=== PATIENT | female | born 1955 | race Caucasian/White ===

== ENCOUNTER → 2018-08-15 | Outpatient (CLI) | payer OTHER ==
[2018-08-15 10:44] LABS: BASOPHIL % 0.3 % (0.0-0.2); EOSINOPHIL # 0.1 10^3/uL (0.0-0.2); EOSINOPHIL % 1.7 % (0.0-5.0); HEMOGLOBIN 14.1 g/dL (12.0-15.0); LYMPHOCYTES # 2.1 10^3/uL (1.0-4.8); LYMPHOCYTES % 33.3 % (24.0-44.0); MEAN CELL HGB 31.2 pg (26-34); MEAN CELL HGB CONCENTRATION 33.8 g/dL (33-37); MEAN CORP VOLUME 92.3 fL (78-100); MONOCYTES # 0.5 10^3/uL (0.3-0.8); MONOCYTES % 8.4 % (5.0-12.0); NEUTROPHIL # 3.6 10^3/uL (1.8-7.7); RED CELL DISTRIBUTION WIDTH 14.4 % (11.5-14.5); WHITE BLOOD CELL 6.4 10^3/uL (4.5-11.0)
[2018-08-15 10:47] LABS: BILIRUBIN,URINE NEGATIVE (NEGATIVE); UROBILINOGEN,URINE NORMAL (NEGATIVE)
[2018-08-15 10:49] LABS: APPEARANCE,URINE CLEAR (CLEAR); UA COLOR YELLOW (YELLOW)
[2018-08-15 11:26] LABS: CALCIUM 10.2 mg/dL (8.4-10.5); CARBON DIOXIDE 24.7 mmol/L (20.0-32)
== END | disposition home or self-care (01) ==
LOC: LAB 10:16
PROVIDERS: ATTEND Nurse Practitioner Family
DX: E03.9 Hypothyroidism, unspecified (principal); I10 Essential (primary) hypertension; E87.5 Hyperkalemia
CPT/HCPCS: 36415; 80053; 80061; 81002; 84439; 84443; 84480; 85025

== ENCOUNTER 2018-11-07 20:28 | Emergency (ER) | payer OTHER ==
[~2018-11-07] VITALS: Ht 170.2 cm; Wt 79.8 kg
[2018-11-07 20:28] VITALS: BP 117/74
[2018-11-07] MEDS ORDERED: TORADOL IM STA (20:52)
--- NOTE | 2018-11-07 20:58 | ER.PDOC ---
General Chief Complaint: Requesting Medical Care Stated Complaint: COUGH, R SIDE PAIN Time seen by MD: 20:43 Source: patient Exam Limitations: no limitations History of Present Illness Initial Comments 63 YO FEMALE WITH COUGH PRODUCTIVE OF YELLOW SPUTUM X 4 DAYS. THE SPUTUM IS NOW PINK AND FROTTY. ASSOCIATED NASAL CONGESTION, SORE THROAT, CHILLS. SHE STATED HAVING RIGHT CHEST PAIN ON COUGHING TODAY. SHE HAD MILD WHEEZING A DAY AGO BUT NON CURRENTLY. SHE HAS BEEN TAKING OTC COUGH MEDICINE WITH NO IMPROVEMENT. Timing/Duration: abrupt, other (4 DAYS AGO) Severity: moderate Associated Symptoms: fever/chills, runny nose, sore throat, cough, productive cough, hurts to breath Worsen By: deep breathing Prior symptoms/Treatment: Similar symptoms previous Constitutional: denies chills, denies diaphoresis, denies fever, denies malaise, denies weakness EENTM: no symptoms reported Respiratory: cough; denies SOB with exertion, denies wheezing Cardiovascular: chest pain; denies irregular heart rate, denies lightheadedness, denies palpitations Gastrointestinal: denies abdominal pain Genitourinary: denies burning Musculoskeletal: denies back pain Skin: denies rash Psychiatric/Neurological: denies headache Endocrine: denies excessive sweating Hematologic/Lymphatic: denies easy bruising Past Medical History Medical History: high cholesterol, hypertension, thyroid disease (HYPOTHYROIDISM), other (MIGRAINE) Surgical History: hysterectomy LMP (females 10-50): hysterectomy Family History Significant Family History: no pertinent family hx Social History Smoking: non-smoker Alcohol Use: occassionally Drug Use: none Physical Exam General Appearance: alert, other (RIGHT CHEST DISCOMFORT ON COUGHING) Eye: eyes nml inspection, lids & conjunct. nml, PERRL Ear: ear nml Nose: nose nml Throat: pharynx nml Neck: nml inspection, supple Respiratory: splinting, decreased air movement (RIGHT LUNG) Abdomen: non-tender, no organomegaly CVS: reg rate & rhythm Skin: color nml, no rash Extremities: non-tender, no pedal edema NEURO/PSYCH: oriented x 3, other (NO ALTERED MENTAL STATUS) Results/Orders Results/Orders Orders - EDINSON MEZA MD Xr Chest 2v (11/07/18 20:52) Ketorolac Tromethamine (Toradol) (11/07/18 20:52) Ketorolac Tromethamine (Toradol) (11/07/18 21:45) Cbc With Auto Diff (11/07/18 22:22) Comprehensive Metabolic Panel (11/07/18 22:22) Saline Lock (11/07/18 22:22) Levofloxacin (Levaquin) (11/07/18 23:17) Blood Culture (11/07/18 23:17) Saline Lock (11/07/18 23:17) Contact Isolation With Mask (11/07/18 23:20) Potassium Chloride (Klor-Con 10) (11/07/18 23:24) Levofloxacin (Levaquin) (11/07/18 23:34) Potassium Chloride (Klor-Con 10) (11/07/18 23:34) Potassium Chloride (Klor-Con 10) (11/07/18 23:40) Vital Signs Date Time Temp Pulse Resp B/P (MAP) Pulse Ox O2 Delivery O2 Flow Rate FiO2 11/08/18 00:09 99.0 90 20 96 Room Air 11/07/18 23:57 90 20 107/51 (69) 96 Room Air 11/07/18 20:28 99.0 93 22 117/74 (88) 97 Room Air 99.0 11/07/18 20:28 99.0 93 22 97 Room Air 99.0 11/07/18 20:28 99.0 93 18 99.0 Administered Medications Medications (Trade) Dose Ordered Sig/Sami Route PRN Reason Start Time Stop Time Status Last Admin Dose Admin Ketorolac Tromethamine (Toradol) 60 mg STAT STAT IM 11/07/18 20:52 11/07/18 20:55 DC 11/07/18 21:52 60 MG Levofloxacin (Levaquin) 750 mg STAT STAT PO 11/07/18 23:17 11/07/18 23:21 DC 11/07/18 23:45 750 MG Potassium Chloride (Klor-Con 10) 40 meq STAT STAT PO 11/07/18 23:24 11/08/18 00:10 DC 11/07/18 23:45 40 MEQ Laboratory Tests Test 11/07/18 22:40 11/07/18 22:48 White Blood Count 12.8 10^3/uL (4.5-11.0) H Red Blood Count 4.21 10^6/uL (4.00-5.20) Hemoglobin 12.8 g/dL (12.0-15.0) Hematocrit 37.4 % (36.0-46.0) Mean Corpuscular Volume 88.8 fL (78-100) Mean Corpuscular Hemoglobin 30.4 pg (26-34) Mean Corpuscular Hemoglobin Concent 34.2 g/dL (33-37) Red Cell Distribution Width 13.5 % (11.5-14.5) Platelet Count 205 10^3/uL (150-400) Mean Platelet Volume 9.2 fL (7.8-11.0) Neutrophils (%) (Auto) 87.7 % (41.0-85.0) H Lymphocytes (%) (Auto) 4.1 % (24.0-44.0) *L Monocytes (%) (Auto) 7.6 % (5.0-12.0) Neutrophils # (Auto) 11.3 10^3/uL (1.8-7.7) H Lymphocytes # (Auto) 0.5 10^3/uL (1.0-4.8) L Monocytes # (Auto) 1.0 10^3/uL (0.3-0.8) H Absolute Immature Granulocyte (auto 0.07 10^3 u/L (0-2) Immature Granulocytes % 0.50 % (0.00-0.50) Eosinophils % 0.0 % (0.0-5.0) Basophils % 0.1 % (0.0-0.2) Basophils # 0.0 10^3/uL (0.0-0.1) Eosinophil Count 0.0 10^3/uL (0.0-0.2) Sodium Level 138 mmol/L (132-145) Potassium Level 2.8 mmol/L (3.6-5.2) L Chloride Level 106.0 mmol/L (96-109) Carbon Dioxide Level 21.2 mmol/L (20.0-32) Anion Gap 13.6 Blood Urea Nitrogen 17 mg/dL (7-18) Creatinine 1.05 mg/dL (0.59-1.40) Estimated GFR () 64.3 (>/=60) BUN/Creatinine Ratio 16.0 Glucose Level 114 mg/dL (70-110) H Calcium Level 9.4 mg/dL (8.4-10.5) Total Bilirubin 0.4 mg/dL (0.2-1.0) Aspartate Amino Transferase (AST) 34 U/L (0-35) Alanine Aminotransferase (ALT) 41 U/L (12-78) Alkaline Phosphatase 63 U/L (50-136) Total Protein 7.0 g/dL (6.4-8.2) Albumin 3.3 g/dL (3.4-5.0) L Globulin 3.7 Differential Total Cells Counted 100 #CELLS Segmented Neutrophils 74 % (31-76) Band Neutrophils 12 % (2-6) H Lymphocytes 6 % (25-36) L Monocytes 8 % (3-9) Platelet Estimate ADEQUATE Platelet Morphology NORMAL Blood Morphology Comment NORMAL MORPHOLOGY Progress Progress CBC WITH WBC 12.8, NEUT 87.7, POTASSIUM 2.8. CHEST XR SHOW RIGHT MIDDLE LOBE PNEUMONIA. PATIENT IS AFEBRILE, NOT TOXIC LOOKING, WILL TREAT OUT PATIENT. CLOSE FOLLOW UP WITH HER PCP FOR RECHECK. PATIENT TO WEAR MASK. PATIENT IS NOT HYPOXIC. PNEUMONIA SEVERITY INDEX CLASS 2. SHE CAN BE TREATED OUT PATIENT. POTASSIUM REPLACEMENT ADMINISTERED PO PRIRO TO DISCHARGE. PATIENT IS STABLE. SHE WORKS AT THE HOSPITAL. I CANNOT COMPLETELY EXCLUDE NOSOCOMIAL INFECTION. I WILL PLACE HER ON LEVAQUIN FOR AT LEAST 7 DAYS. CLOSE FOLLOW UP. EKG/XRAY/CT/US XRAY: chest XRAY Comments: Right middle lobe pneumonia. Departure Time of Disposition: 23:27 Disposition: 01 HOME, SELF-CARE Impression: Primary Impression: Pneumonia Additional Impression: Hypokalemia Condition: Stable Patient Instructions: Hypokalemia-Brief, Pneumonia, Adult Referrals: KARLA SHARIF (PCP) PRIMARY CARE PROVIDER FOLLOW UP WITH YOUR PRIMARY CARE PROVIDER FOR RECHECK. Additional Instructions: DRINK PLENTY OF FLUID TO KEEP YOU HYDRATED. TAKE YOUR MEDICATIONS PRESCRIBED. RETURN TO THE ER IF YOUR CONDITION WORSEN. TAKE TYLENOL IF YOU DEVELOP FEVER. Comments LEVAQUIN, NAPROSYN, PROAIR Duration or Time Spent with Pa: 60 MIN Problem Qualifiers Primary Impression: Pneumonia Pneumonia type: due to unspecified organism Laterality: right Lung location: middle lobe of lung Qualified Codes: J18.1 - Lobar pneumonia, unspecified organism EDINSON MEZA MD Nov 07, 2018 20:58
--- NOTE | 2018-11-07 21:28 | DIREP ---
PROCEDURE:CHEST 2 VIEWS COMPARISON:None. INDICATIONS:COUGH FINDINGS: LUNGS/PLEURA:Right middle lobe airspace infiltrate. No pleural effusion. CARDIAC:Normal cardiac silhouette and normal pulmonary vascularity. MEDIASTINUM:Normal BONES:Normal OTHER:No additional findings. CONCLUSION:Right middle lobe pneumonia. Followup to resolution is recommended to exclude a proximal obstructing or underlying mass. Dictated by: Sammie Cortes MD on 11/07/2018 at 09:26 PM
[2018-11-07] MEDS ORDERED: TORADOL ONE (21:45)
[2018-11-07 22:45] LABS: BASOPHIL % 0.1 % (0.0-0.2); HEMOGLOBIN 12.8 g/dL (12.0-15.0); LYMPHOCYTES # 0.5 10^3/uL (1.0-4.8); LYMPHOCYTES % 4.1 % (24.0-44.0); MEAN CELL HGB 30.4 pg (26-34); MEAN CELL HGB CONCENTRATION 34.2 g/dL (33-37); MEAN CORP VOLUME 88.8 fL (78-100); MEAN PLATELET VOLUME 9.2 fL (7.8-11.0); MONOCYTES % 7.6 % (5.0-12.0); NEUTROPHIL # 11.3 10^3/uL (1.8-7.7); NEUTROPHILS % 87.7 % (41.0-85.0); RED CELL DISTRIBUTION WIDTH 13.5 % (11.5-14.5); WHITE BLOOD CELL 12.8 10^3/uL (4.5-11.0)
[2018-11-07 23:01] LABS: CARBON DIOXIDE 21.2 mmol/L (20.0-32)
[2018-11-07 23:02] LABS: CALCIUM 9.4 mg/dL (8.4-10.5)
[2018-11-07] MEDS ORDERED: LEVAQUIN PO STA (23:17)
[2018-11-07] MEDS ORDERED: KLOR-CON 10 PO STA (23:24)
[2018-11-07] MEDS ORDERED: KLOR-CON 10 PO ONE ×2 (23:34→23:40)
[2018-11-07] MEDS ORDERED: LEVAQUIN ONE (23:34)
[2018-11-07 23:54] LABS: BAND NEUTROPHILS 12 % (2-6); LYMPHOCYTE 6 % (25-36); MONOCYTE 8 % (3-9); SEGMENTED NEUTROPHILS 74 % (31-76)
[2018-11-07 23:57] VITALS: BP 107/51
[2018-11-08 00:09] VITALS: BP 107/51
== END 2018-11-07 23:57 | disposition home or self-care (01) ==
LOC: ER 20:28
DX: J18.1 Lobar pneumonia, unspecified organism (principal); E87.6 Hypokalemia; E03.9 Hypothyroidism, unspecified; G43.909 Migraine, unspecified, not intractable, without status migrainosus; E78.00 Pure hypercholesterolemia, unspecified; I10 Essential (primary) hypertension; Z79.899 Other long term (current) drug therapy; Z90.710 Acquired absence of both cervix and uterus
CPT/HCPCS: 36415; 71046; 80053; 85025; 87040 ×2; 96372; 99285; J1885; J1956; J3490 ×2

== ENCOUNTER → 2018-11-13 | Outpatient (CLI) | payer OTHER | END | disposition home or self-care (01) | LOC: LAB 11:46 | PROVIDERS: ATTEND Nurse Practitioner Family | DX: E03.9 Hypothyroidism, unspecified (principal) | CPT/HCPCS: 84443 ==

== ENCOUNTER → 2018-11-28 | Outpatient (CLI) | payer OTHER ==
[2018-11-28 15:27] LABS: CALCIUM 9.3 mg/dL (8.4-10.5); CARBON DIOXIDE 25.8 mmol/L (20.0-32)
== END | disposition home or self-care (01) ==
LOC: LAB 14:35
PROVIDERS: ATTEND Nurse Practitioner Family
DX: E87.6 Hypokalemia (principal)
CPT/HCPCS: 36415; 80053

== ENCOUNTER → 2018-12-25 | Outpatient (CLI) | payer OTHER ==
[2018-12-25 20:01] LABS: CALCIUM 9.3 mg/dL (8.4-10.5); CARBON DIOXIDE 25.5 mmol/L (20.0-32)
== END | disposition home or self-care (01) ==
LOC: LAB 19:03
PROVIDERS: ATTEND Nurse Practitioner Family
DX: E87.6 Hypokalemia (principal); I10 Essential (primary) hypertension; E03.9 Hypothyroidism, unspecified
CPT/HCPCS: 36415; 80053

== ENCOUNTER → 2019-02-18 | Outpatient (CLI) | payer OTHER ==
[2019-02-18 08:46] LABS: MEAN CELL HGB CONCENTRATION 32.9 g/dL (33-37); MEAN PLATELET VOLUME 9.3 fL (7.8-11.0); RED CELL DISTRIBUTION WIDTH 14.7 % (11.5-14.5); WHITE BLOOD CELL 5.7 10^3/uL (4.5-11.0)
[2019-02-18 09:12] LABS: CALCIUM 9.5 mg/dL (8.4-10.5); CARBON DIOXIDE 24.1 mmol/L (20.0-32)
== END | disposition home or self-care (01) ==
LOC: LAB 08:12
PROVIDERS: ATTEND Nurse Practitioner Family
DX: E03.9 Hypothyroidism, unspecified (principal); E78.5 Hyperlipidemia, unspecified
CPT/HCPCS: 36415; 80053; 80061; 84443; 85027

== ENCOUNTER → 2019-03-05 | Outpatient (CLI) | payer OTHER ==
--- NOTE | 2019-03-05 11:15 | DIREP ---
PROCEDURE:Digital Screening Mammogram TECHNIQUE:MLO, CC, and XCCL digital images of each breast are provided. Computer Assisted Detection (CAD) was utilized. COMPARISON:None. INDICATIONS:SCREENING BREAST COMPOSITION:There are scattered areas of fibroglandular density. FINDINGS:There are no grouped microcalcifications, masses, or architectural distortions to suggest malignancy. IMPRESSION:No mammographic evidence of malignancy. RECOMMENDATIONS:Routine Screening Mammography per [employer] guidelines. OVERALL FINAL ASSESSMENT:BI-RADS 1 - Negative Mammogram Note: This facility participates in a mammography screening patient reminder system. Dictated by: Lamin Gonzalez M.D. on 03/05/2019 at 11:11 AM
== END | disposition home or self-care (01) ==
LOC: RAD 09:37
PROVIDERS: ATTEND Nurse Practitioner Family
DX: Z12.31 Encounter for screening mammogram for malignant neoplasm of breast (principal)
CPT/HCPCS: 77067

== ENCOUNTER 2019-05-13 19:43 | Emergency (ER) | payer OTHER ==
[~2019-05-13] VITALS: Ht 170.2 cm; Wt 81.6 kg
[2019-05-13 20:04] VITALS: BP 138/64
[2019-05-13] MEDS ORDERED: MORPHINE SULFATE IM STA (20:22)
[2019-05-13] MEDS ORDERED: PHENERGAN IM STA (20:22)
[2019-05-13] MEDS ORDERED: PHENERGAN ONE (20:24)
--- NOTE | 2019-05-13 20:24 | ER.PDOC ---
General Chief Complaint: Headache Stated Complaint: MIRGRAINE Time seen by MD: 20:15 Source: patient Exam Limitations: no limitations History of Present Illness Initial Comments Acute onset of headache c/w migraine 2 hrs ago. Typical of previous but worse than usual Timing/Duration: 1-3 hours Severity/Quality: severe Prior Headaches/Recent Trauma: frequent headaches Associated Symptoms: nausea/vomiting Prior symptoms/Treatment: Similar symptoms previous, Recenly Seen, Treated by Doctor Past Medical History Medical History: hypertension, thyroid disease Surgical History: hysterectomy Social History Alcohol Use: occassionally Drug Use: none Review of Systems Constitutional: no symptoms reported Eyes: photophobia Ears, Nose, Mouth, Throat: no symptoms reported Respiratory: no symptoms reported Cardiovascular: no symptoms reported Gastrointestinal: nausea Genitourinary: no symptoms reported Musculoskeletal: no symptoms reported Skin: no symptoms reported Psychiatric/Neurological: no symptoms reported Physical Exam General Appearance: WD/WN, Moderate Distress Head/Eyes: eyes nml inspection, no facial swelling, no nystagmus, PERRL ENT: nml ENT inspection, pharynx nml Neck: nml inspection, Supple Cardiovascular: Normal Peripheral Pulses, Regular Rate, Rhythm, No Edema, No Gallop, No JVD, No Murmur Respiratory: chest non-tender, lungs clear, normal breath sounds, no respiratory distress, no accessory muscle use Gastrointestinal: Normal Bowel Sounds, No Organomegaly, No Pulsatile Mass, Non Tender, Soft Back: Normal Inspection, No CVA Tenderness, No Vertebral Tenderness Extremities: Normal Range of Motion, Non-Tender, Normal Inspection, No Pedal Edema, No Calf Tenderness, Normal Capillary Refill Psychiatric: Alert, Oriented x 3 Cranial Nerves: Normal Hearing, Normal Speech, PERRL Coordination/Gait: Normal Finger to Nose, Normal Gait Motor/Sensory: No Motor Deficit, No Sensory Deficit, No Pronator Drift, Negative Babinski's Sign Skin: Warm/Dry, Normal Color Lymphatic: No Adenopathy Results/Orders Results/Orders Vital Signs Date Time Temp Pulse Resp B/P (MAP) Pulse Ox O2 Delivery O2 Flow Rate FiO2 05/13/19 20:04 97.9 70 18 97 05/13/19 20:04 97.9 70 18 05/13/19 20:04 97.9 70 18 138/64 (88) 97 Course Sepsis Screening Results: Posi: POSITIVE SEPSIS RISK Duration or Total Time Spent w: 60 MIN Vitals & review Data Vital Sign - Last 24 Hours 05/13/19 05/13/19 05/13/19 20:04 20:04 20:04 Temp 97.9 97.9 97.9 Pulse 70 70 70 Resp 18 18 18 B/P (MAP) 138/64 (88) Pulse Ox 97 97 Sepsis Infection Criteria Pres: None O2 Sat by Pulse Oximetry: 97 Departure Time of Disposition: 20:23 Disposition: 01 HOME, SELF-CARE Impression: Primary Impression: Migraine Condition: Stable Referrals: KARLA SHARIF (PCP) PRIMARY CARE PROVIDER Duration or Time Spent with Pa: 10 Problem Qualifiers Primary Impression: Migraine Migraine type: without aura Status migrainosus presence: without status migrainosus Intractability: not intractable Qualified Codes: G43.009 - Migraine without aura, not intractable, without status migrainosus YOLIE LEVINE MD May 13, 2019 20:24
[2019-05-13] MEDS ORDERED: MORPHINE SULFATE ONE (20:25)
--- NOTE | 2019-05-13 20:28 | NUR ---
MEDS: MORPHIME AND PHENERGEN IM GIVEN. PT IS GOING TO GO TO ROOM 226 AND SLEEP AFTER BEING DISCHARGED.
== END 2019-05-13 20:36 | disposition home or self-care (01) ==
LOC: ER 19:43
DX: G43.009 Migraine without aura, not intractable, without status migrainosus (principal); E07.9 Disorder of thyroid, unspecified; I10 Essential (primary) hypertension; Z90.710 Acquired absence of both cervix and uterus
CPT/HCPCS: 96372; 99284; J2270; J2550

== ENCOUNTER → 2019-08-19 | Outpatient (CLI) | payer OTHER ==
[2019-08-19 07:56] LABS: MEAN CORP HGB 29.4 pg (26-34); RED CELL DISTRIBUTION WIDTH 13.4 % (11.5-14.5)
[2019-08-19 08:17] LABS: CALCIUM 9.3 mg/dL (8.4-10.5); CARBON DIOXIDE 26.5 mmol/L (20.0-32)
== END | disposition home or self-care (01) ==
LOC: LAB 07:32
PROVIDERS: ATTEND Nurse Practitioner Family
DX: Z13.228 Encounter for screening for other metabolic disorders (principal)
CPT/HCPCS: 36415; 80053; 80061; 84443; 85027

== ENCOUNTER → 2019-09-10 | Outpatient (CLI) | payer OTHER ==
--- NOTE | 2019-09-10 11:51 | DIREP ---
PROCEDURE:XR SPINE CERVICAL 2 OR 3 VIEWS COMPARISON:None. INDICATIONS:CERVICAL STRAIN, TINGLING/NUMBNESS TECHNIQUE:AP, lateral, and dens views of the cervical spine are provided. FINDINGS: ALIGNMENT:Normal. VERTEBRAE:Anterior and posterior endplate osteophytes are seen at C5-6. DISK SPACES:Moderate disc space narrowing is seen at C5-6. CERVICAL RIBS:None. OTHER:Normal. CONCLUSION:There are findings of moderate spondylosis and degenerative disc disease at C5-6. Dictated by: Javi Weaver M.D. on 09/10/2019 at 11:48 AM
== END | disposition home or self-care (01) ==
LOC: RAD 11:21
PROVIDERS: ATTEND Nurse Practitioner Family
DX: S16.1XXA Strain of muscle, fascia and tendon at neck level, initial encounter (principal); M47.812 Spondylosis without myelopathy or radiculopathy, cervical region; X58.XXXA Exposure to other specified factors, initial encounter; Y93.89 Activity, other specified; Y92.89 Other specified places as the place of occurrence of the external cause; Y99.8 Other external cause status
CPT/HCPCS: 72040

== ENCOUNTER → 2019-10-21 | Outpatient (CLI) | payer OTHER | END | disposition home or self-care (01) | LOC: LAB 15:01 | PROVIDERS: ATTEND Nurse Practitioner Family | DX: E03.9 Hypothyroidism, unspecified (principal) | CPT/HCPCS: 36415; 84439; 84443; 84480 ==

== ENCOUNTER → 2020-01-09 | Outpatient (CLI) | payer OTHER ==
--- NOTE | 2020-01-09 11:49 | DIREP ---
PROCEDURE:XRAY HIP MIN 2VW-RT COMPARISON:None. INDICATIONS:RIGHT HIP PAIN FINDINGS: BONES:Normal. JOINTS:Normal. SOFT TISSUES:Normal. OTHER:Surgical clips project over the left pubic bone. CONCLUSION:No acute fracture, dislocation, or significant degenerative changes. Dictated by: Arturo Gutierrez MD. on 01/09/2020 at 11:47 AM
--- NOTE | 2020-01-09 11:51 | DIREP ---
PROCEDURE:XRAY SPINE LUMBAR 2-3 VWS COMPARISON:None. INDICATIONS:LUMBAR SPRAIN WITH PAIN FINDINGS: ALIGNMENT:Spondylolisthesis as below. Otherwise normal. VERTEBRAE:Vertebral body heights are maintained. Mild multilevel endplate osteophytes. Mild to moderate facet arthropathy most prominent in the lower lumbar spine. DISK SPACES:Severe disc space narrowing at L5-S1. Mild narrowing at L3-L4 and L4-5. SPONDYLOLISTHESIS:4 mm anterolisthesis of L4 on L5. SACROILIAC JOINTS:Normal. OTHER:Normal. CONCLUSION:Mild to moderate spondylosis of the lumbar spine most prominent at L5-S1 with severe disc space narrowing at this level with lower lumbar facet arthrosis. Dictated by: Arturo Gutierrez MD. on 01/09/2020 at 11:48 AM
--- NOTE | 2020-01-09 11:53 | DIREP ---
PROCEDURE:XR SPINE CERVICAL 2 OR 3 VIEWS COMPARISON:[facility], CR, XRAY SPINE CERVICAL 2-3VW, 09/10/2019, 11:31 AM. INDICATIONS:NECK PAIN FINDINGS: ALIGNMENT:1-2 mm retrolisthesis of C5 on C6. Otherwise normal. VERTEBRAE:Vertebral body heights are maintained. Multilevel endplate changes and osteophytes most prominent at C5-C6. DISK SPACES:Moderate disc space narrowing at C5-C6. Mild narrowing at C6-C7. CERVICAL RIBS:None. OTHER:Normal. CONCLUSION:Moderate degenerative changes at C5-C6, not significantly progressed in the interval. Dictated by: Arturo Gutierrez MD. on 01/09/2020 at 11:50 AM
== END | disposition home or self-care (01) ==
LOC: RAD 10:22
PROVIDERS: ATTEND Nurse Practitioner Family
DX: S83.91XA Sprain of unspecified site of right knee, initial encounter (principal); S33.5XXA Sprain of ligaments of lumbar spine, initial encounter; M47.812 Spondylosis without myelopathy or radiculopathy, cervical region; M47.817 Spondylosis without myelopathy or radiculopathy, lumbosacral region; M48.07 Spinal stenosis, lumbosacral region; E03.9 Hypothyroidism, unspecified; M54.2 Cervicalgia; M25.551 Pain in right hip; E78.5 Hyperlipidemia, unspecified; X58.XXXA Exposure to other specified factors, initial encounter; Y93.89 Activity, other specified; Y92.89 Other specified places as the place of occurrence of the external cause; Y99.8 Other external cause status
CPT/HCPCS: 72040; 72100; 73502

== ENCOUNTER → 2020-01-13 | Outpatient (CLI) | payer OTHER ==
[2020-01-13 07:49] LABS: MEAN CORP HGB 30.2 pg (26-34); RED CELL DISTRIBUTION WIDTH 13.3 % (11.5-14.5)
[2020-01-13 08:01] LABS: APPEARANCE,URINE SLIGHTLY CLOUDY (CLEAR); BILIRUBIN,URINE NEGATIVE (NEGATIVE); UA COLOR YELLOW (YELLOW); UROBILINOGEN,URINE NEGATIVE (NEGATIVE)
[2020-01-13 08:19] LABS: CALCIUM 10.6 mg/dL (8.4-10.5); CARBON DIOXIDE 27.5 mmol/L (20.0-32)
== END | disposition home or self-care (01) ==
LOC: LAB 07:30
PROVIDERS: ATTEND Nurse Practitioner Family
DX: M51.17 Intervertebral disc disorders with radiculopathy, lumbosacral region (principal); E03.9 Hypothyroidism, unspecified; E78.5 Hyperlipidemia, unspecified; M54.2 Cervicalgia; M25.551 Pain in right hip
CPT/HCPCS: 36415; 80053; 80061; 81000; 84443; 85027; 87086

== ENCOUNTER → 2020-01-14 | Outpatient (CLI) | payer OTHER ==
--- NOTE | 2020-01-14 15:53 | DIREP ---
PROCEDURE:MRI SPINE LUMBAR W/O COMPARISON:None. INDICATIONS:intervertebral disc degeneration, lumbar region TECHNIQUE:A comprehensive examination was performed utilizing a variety of imaging planes and imaging parameters to optimize visualization of suspected pathology. Images were performed without intravenous gadolinium contrast. FINDINGS: ALIGNMENT:Normal. VERTEBRA:Normal vertebral body height. Minimal anterior disc osteophyte complex formation. Modic endplate degenerative changes at the L5-S1 level. CORD/CAUDA EQUINA:Normal size, contour, and signal intensity. PARASPINAL AREA:Normal with no visible mass. OTHER:None. LUMBAR DISC LEVELS T12-L1:Moderate bilateral facet arthrosis, with moderate ligamentum flavum redundancy. L1-L2:Moderate bilateral facet arthrosis, with mild ligamentum flavum redundancy L2-L3:Moderate bilateral facet arthrosis, with mild ligamentum flavum redundancy. L3-L4:Moderate to severe bilateral facet arthrosis, with moderate ligamentum flavum redundancy. Small broad-based posterior disc protrusion. Mild bilateral neural foraminal narrowing, left greater than right. L4-L5:Severe bilateral facet arthrosis, with moderate ligamentum flavum redundancy. Broad-based posterior disc protrusion. Mild bilateral neural foraminal narrowing. L5-S1:Mild bilateral facet arthrosis, with mild ligamentum flavum redundancy. Broad-based posterior disc osteophyte complex. Moderate bilateral neural foraminal narrowing. CONCLUSION:Multilevel degenerative and discogenic changes, with multilevel neural foraminal narrowing as above. Dictated by: Haile Boss M.D. on 01/14/2020 at 03:48 PM
--- NOTE | 2020-01-14 16:04 | DIREP ---
PROCEDURE:MRI SPINE CERVICAL W/O COMPARISON:None. INDICATIONS:M54.31 SCIATICA RT SIDE, CERVICAL DISC DENERATION, CERVICAL DISC DISORDER TECHNIQUE:A variety of imaging planes and parameters were utilized for visualization of suspected pathology without contrast. FINDINGS: CRANIOCERVICAL AREA:Normal foramen magnum with no Chiari malformation. ALIGNMENT:Normal. VERTEBRA:No fracture or osseous lesions. SPINAL CORD:Normal size, contour, and signal intensity. PARASPINAL AREA:Normal with no visible mass. OTHER:No additional findings. CERVICAL DISC LEVELS: C2-C3:Moderate right facet disease with moderate right neural foraminal narrowing. C3-C4:Mild left facet disease. Mild left neural foraminal narrowing. Minimal posterior disc protrusion with mild focal narrowing of the posterior spinal canal. C4-C5:Minimal bilateral facet disease. C5-C6:Broad-based posterior disc osteophyte complex. Moderate to severe bilateral neural foraminal narrowing. Moderate to severe spinal canal narrowing. C6-C7:Broad-based posterior disc osteophyte. Moderate to advanced spinal canal narrowing. Mild left neural foraminal narrowing. C7-T1:No significant disc/facet abnormality, spinal stenosis, or foraminal stenosis. CONCLUSION:Multilevel degenerative changes most pronounced C5-C6. Dictated by: Coleman Wren DO on 01/14/2020 at 04:00 PM
== END | disposition home or self-care (01) ==
LOC: RAD 13:48
PROVIDERS: ATTEND Nurse Practitioner Family
DX: M51.36 Other intervertebral disc degeneration, lumbar region (principal); M47.816 Spondylosis without myelopathy or radiculopathy, lumbar region; M54.31 Sciatica, right side; M50.122 Cervical disc disorder at C5-C6 level with radiculopathy; M50.220 Other cervical disc displacement, mid-cervical region, unspecified level
CPT/HCPCS: 72141; 72148

== ENCOUNTER → 2020-02-28 | Outpatient (CLI) | payer OTHER ==
--- NOTE | 2020-02-28 09:53 | DIREP ---
PROCEDURE:CT PELVIS W/O COMPARISON:None. INDICATIONS:M54.9 SPINAL PAIN TECHNIQUE:CT images were created without intravenous contrast. FINDINGS: PELVIC NODES:Normal. PELVIC ORGANS:Two small metallic densities posterior to the left symphysis, likely postsurgical. Hysterectomy. BONES:Advanced L5/S1 disc degenerative changes and facet arthrosis. OTHER:Negative. CONCLUSION:L5/S1 degenerative changes. No acute bony abnormality. Dictated by: Sammie Cortes MD on 02/28/2020 at 09:45 AM
--- NOTE | 2020-02-28 10:50 | DIREP ---
PROCEDURE: CT SPINE LUMBAR W/O TECHNIQUE:Axial cuts were obtained through the lumbar spine. The images were viewed at bone settings. COMPARISON:[facility], MR, MRI SPINE LUMBAR W/O, 01/14/2020, 02:01 PM. [facility], CR, XRAY SPINE LUMBAR 2-3 VWS, 01/09/2020, 10:30 AM. INDICATIONS:M54.9 SPINAL PAIN FINDINGS: ALIGNMENT:3 mm spondylolisthesis at L4-5. VERTEBRAE:No compression fracture, pars defect, or aggressive osseous lesions. Lung the Kirk in the knees and PARASPINAL AREA:Mildly prominent right extrarenal pelvis. No blunting of the right renal calices to suggest hydronephrosis. Small right hepatic cysts instantly noted. OTHER:No additional findings. LUMBAR DISC LEVELS T12-L1:Normal. L1-L2:Normal. L2-L3:Normal. L3-L4:Mild generalized posterior disc bulge, superimposed small bilateral foraminal disc protrusion/herniations, marked bilateral facet arthropathy. Marked acquired central canal spinal stenosis, moderate right and marked left foraminal stenosis. bilateral foraminal stenosis. L4-L5:Posterior disc margin is uncovered by minimal grade 1 spondylolisthesis. Mild posterior disc bulge, marked bilateral facet arthropathy. Marked central canal spinal stenosis, marked bilateral foraminal stenosis. L5-S1:Marked disc space narrowing, degenerative vacuum gas disc phenomenon, posterior disc bulge, superimposed bilateral foraminal osteophyte protrusions, marked bilateral facet arthropathy. Marked bilateral foraminal stenosis. CONCLUSION: 1. Multilevel degenerative disc and joint changes of the lumbar spine. Grade 1 spondylolisthesis at L4-5 due to degenerative disc and joint changes. No evidence of acute bony trauma to the L-spine. 2. At L3-4 and L4-5, there are findings of marked acquired central canal spinal stenosis. 3. Please see above discussion for other details of findings. Dictated by: Kel Arreguin M.D. on 02/28/2020 at 10:29 AM
--- NOTE | 2020-02-28 11:23 | DIREP ---
PROCEDURE: CT SPINE CERVICAL W/O COMPARISON:[facility], MR, MRI SPINE CERVICAL W/O, 01/14/2020, 02:27 PM. [facility], CR, XRAY SPINE LUMBAR 2-3 VWS, 01/09/2020, 10:30 AM. INDICATIONS:M54.9 SPINAL PAIN FINDINGS: ALIGNMENT:Normal. VERTEBRAE:Normal. PARASPINAL AREA:Normal. OTHER:No additional findings. CERVICAL DISC LEVELS C2-C3:Right facet arthropathy. Marked right foraminal stenosis. C3-C4:Bilateral facet arthropathy. Mild bilateral foraminal stenosis. C4-C5:Mild posterior disc bulge, right facet arthropathy, bilateral uncovertebral arthropathy. Mild left and moderate right foraminal stenosis. C5-C6:Marked disc space narrowing, mild generalized posterior osteophyte protrusion, bilateral uncovertebral arthropathy, right facet arthropathy. Marked bilateral foraminal stenosis. Mild central canal spinal stenosis. AP midsagittal canal diameter measures 8 mm. C6-C7:Marked disc space narrowing, mild generalized posterior osteophyte protrusion, bilateral uncovertebral arthropathy, moderate bilateral foraminal stenosis. C7-T1:Normal. CONCLUSION: 1. Multilevel degenerative disc and joint changes of the cervical spine with no evidence of acute bony trauma. 2. Degenerative changes are greatest at the C5-6 level, where there are findings of mild acquired central canal spinal stenosis and marked bilateral foraminal stenosis. 3. Please see above discussion for other details of findings. Dictated by: Kel Arreguin M.D. on 02/28/2020 at 11:10 AM
== END | disposition home or self-care (01) ==
LOC: RAD 08:08
PROVIDERS: ATTEND Neurological Surgery
DX: M47.812 Spondylosis without myelopathy or radiculopathy, cervical region (principal); M48.02 Spinal stenosis, cervical region; M47.816 Spondylosis without myelopathy or radiculopathy, lumbar region; M48.061 Spinal stenosis, lumbar region without neurogenic claudication; M25.78 Osteophyte, vertebrae; M51.26 Other intervertebral disc displacement, lumbar region; M43.16 Spondylolisthesis, lumbar region; M47.817 Spondylosis without myelopathy or radiculopathy, lumbosacral region
CPT/HCPCS: 72125; 72131; 72192

== ENCOUNTER → 2020-02-28 | Outpatient (CLI) | payer OTHER ==
--- NOTE | 2020-02-28 10:05 | DIREP ---
PROCEDURE:Digital Screening Mammogram TECHNIQUE:MLO, CC, and XCCL digital images of each breast are provided. Computer Assisted Detection (CAD) was utilized. COMPARISON:[facility], MAMMO BILATERAL SCREENING, 02/01/2018, 01:23 PM. [facility], MAMMO BILATERAL SCREENING, 01/23/2017, 02:11 PM. [facility], MAMMO BILATERAL SCREENING, 01/12/2016, 10:11 AM. [facility], MAMMO DIAGNOSTIC LT, 09/23/2015, 03:02 PM. [facility], MAMMO DIAGNOSTIC LT, 01/14/2015, 01:44 PM. [facility], MAMMO BILATERAL SCREENING, 03/05/2019, 09:50 AM. INDICATIONS:SCREENING BREAST COMPOSITION:There are scattered areas of fibroglandular density. FINDINGS:There are no grouped microcalcifications, masses, or architectural distortions to suggest malignancy. There is no significant change as compared with the previous examination(s). IMPRESSION:No mammographic evidence of malignancy. RECOMMENDATIONS:Routine Screening Mammography per [employer] guidelines. OVERALL FINAL ASSESSMENT:BI-RADS 1 - Negative Mammogram Note: This facility participates in a mammography screening patient reminder system. Dictated by: Lamin Gonzalez M.D. on 02/28/2020 at 10:03 AM
== END | disposition home or self-care (01) ==
LOC: RAD 08:12
PROVIDERS: ATTEND Nurse Practitioner Family
DX: Z12.31 Encounter for screening mammogram for malignant neoplasm of breast (principal)
CPT/HCPCS: 77067

== ENCOUNTER → 2020-03-10 | Outpatient (CLI) | payer OTHER ==
[2020-03-10 07:04] LABS: MEAN CORP HGB 30.2 pg (26-34); RED CELL DISTRIBUTION WIDTH 13.6 % (11.5-14.5)
[2020-03-10 07:53] LABS: CALCIUM 9.2 mg/dL (8.4-10.5); CARBON DIOXIDE 27.7 mmol/L (20.0-32)
== END | disposition home or self-care (01) ==
LOC: LAB 06:29
PROVIDERS: ATTEND Specialist
DX: Z01.818 Encounter for other preprocedural examination (principal); E78.5 Hyperlipidemia, unspecified; I11.9 Hypertensive heart disease without heart failure
CPT/HCPCS: 36415; 80053; 80061; 82306; 82550; 84443; 85027; 86140

== ENCOUNTER → 2020-03-10 | Outpatient (CLI) | payer OTHER ==
[2020-03-10] MEDS: LEXISCAN IV ONE (12:42)
--- NOTE | 2020-03-11 21:21 | ECHO ---
DATE OF SERVICE: 03/10/2020 A 64-year-old female with history of hypertension, dyslipidemia, preoperative cardiovascular evaluation for cervical spine surgery, has underlying history of longstanding hypertension. FINDINGS: Mitral valve shows normal motion, normal E to A ratio, normal aorta, normal aortic valve opening. Tricuspid had normal motion with minimal tricuspid regurgitation of 1.3 meters with right ventricular systolic pressure of 16 mm. Normal right ventricular size, normal right atrial size. Left atrium is mildly enlarged in 4-chamber longitudinal dimension to 4.8 cm. Left ventricle is normal in size around 5.35 cm, end diastolic dimension 2.81 cm, end-systolic dimension with normal wall thickness, motion contraction, ejection fraction is 68% and normal end-diastolic volume. IVC is normal. Hence, normal echocardiographic study documented except mild left atrial enlargement in 4-chamber longitudinal dimension and there is an evidence of a tricuspid regurgitating jet which seems to be very narrow jet consistent with 1-2+ tricuspid regurgitation, although the velocity measured 4 meters, but qualitatively it is a very mild mitral regurgitation. Pericardium is normal. Laxmichand MD Bc DR: GLENNA/tristan JOB# [id number]
== END | disposition home or self-care (01) ==
LOC: RAD 11:37
PROVIDERS: ATTEND Specialist
DX: Z01.818 Encounter for other preprocedural examination (principal); I08.1 Rheumatic disorders of both mitral and tricuspid valves; E78.5 Hyperlipidemia, unspecified; I10 Essential (primary) hypertension
CPT/HCPCS: 78452; 93017; 93306; A9500; J2785

== ENCOUNTER → 2020-04-17 | Outpatient (CLI) | payer OTHER ==
[2020-04-17 09:00] LABS: MEAN CORP HGB 29.6 pg (26-34); RED CELL DISTRIBUTION WIDTH 13.7 % (11.5-14.5)
[2020-04-17 09:09] LABS: APPEARANCE,URINE CLEAR (CLEAR); BILIRUBIN,URINE NEGATIVE (NEGATIVE); UA COLOR YELLOW (YELLOW); UROBILINOGEN,URINE NORMAL (NEGATIVE)
[2020-04-17 09:18] LABS: CALCIUM 9.9 mg/dL (8.4-10.5); CARBON DIOXIDE 27.1 mmol/L (20.0-32)
== END | disposition home or self-care (01) ==
LOC: LAB 08:16
PROVIDERS: ATTEND Nurse Practitioner Family
DX: I10 Essential (primary) hypertension (principal); E03.9 Hypothyroidism, unspecified
CPT/HCPCS: 36415; 80053; 80061; 81003; 84443; 85027

== ENCOUNTER → 2020-07-16 | Outpatient (CLI) | payer OTHER | END | disposition home or self-care (01) | LOC: LAB 09:16 | PROVIDERS: ATTEND Nurse Practitioner Family | DX: E03.9 Hypothyroidism, unspecified (principal) | CPT/HCPCS: 36415; 84439; 84443; 84480 ==

== ENCOUNTER → 2020-08-06 | Outpatient (CLI) | payer OTHER ==
--- NOTE | 2020-08-06 15:29 | DIREP ---
PROCEDURE:MRI SPINE LUMBAR W&W/O COMPARISON:[facility], MR, MRI SPINE LUMBAR W/O, 01/14/2020, 02:01 PM. INDICATIONS:M48.07 LUMBOSACRAL SPINAL STENOSIS TECHNIQUE:A comprehensive examination was performed utilizing a variety of imaging planes and imaging parameters to optimize visualization of suspected pathology. Images were performed before and after the administration of intravenous gadolinium contrast. FINDINGS: ALIGNMENT:4 mm anterolisthesis of L4 on L5. VERTEBRA:Interval placement of lumbar fixation hardware dorsally spanning L 3 through S1 with bilateral pedicle screws. Interbody fusion grafts noted at L3-4, L4-5 and L5-S1. Laminectomy defects present spanning L3 through L5. CORD/CAUDA EQUINA:Normal size, contour, and signal intensity. PARASPINAL AREA:Fluid collection seen within the laminectomy bed measuring 1.2 x 2.3 x 6.3 cm with surrounding interstitial edema, no evidence of thick enhancing wall.. Interstitial edema seen in the lower lumbar paraspinous muscles. OTHER:None. LUMBAR DISC LEVELS T12-L1:No significant disc/facet abnormality, spinal stenosis, or foraminal stenosis. L1-L2:No significant disc/facet abnormality, spinal stenosis, or foraminal stenosis. L2-L3:No significant disc/facet abnormality, spinal stenosis, or foraminal stenosis. L3-L4:Lumbar fusion hardware dorsally. Susceptibility artifact limits detail. Neural foramina obscured. Central canal widely patent. L4-L5:Lumbar fusion hardware dorsally. Susceptibility artifact limits detail. Neural foramina obscured. Central canal widely patent. L5-S1:Lumbar fusion hardware dorsally. Susceptibility artifact limits detail. Neural foramina obscured. Central canal widely patent. CONCLUSION: 1. Interval dorsal lumbar fusion placement L3 through S1 with interbody fusion. 2. Laminectomy defects L3 through L5. 4. Fluid collection within laminectomy bed with leading consideration being seroma or pseudomeningocele. Abscess should only be considered in the appropriate clinical setting. Dictated by: Smith Mukherjee M.D. on 08/06/2020 at 03:17 PM
== END | disposition home or self-care (01) ==
LOC: RAD 10:13
PROVIDERS: ATTEND Neurological Surgery
DX: M43.16 Spondylolisthesis, lumbar region (principal); M48.07 Spinal stenosis, lumbosacral region; Z98.1 Arthrodesis status
CPT/HCPCS: 36415; 72158; 82565; A9579

== ENCOUNTER → 2020-10-12 | Outpatient (CLI) | payer OTHER ==
[2020-10-12 10:10] LABS: MEAN CORP HGB 28.2 pg (26-34); RED CELL DISTRIBUTION WIDTH 14.9 % (11.5-14.5)
[2020-10-12 10:16] LABS: UA COLOR YELLOW
[2020-10-12 10:17] LABS: BILIRUBIN,URINE NEGATIVE (NEGATIVE); UROBILINOGEN,URINE 0.2 E.U./dL (0.2)
[2020-10-12 10:40] LABS: CALCIUM 9.2 mg/dL (8.4-10.5)
== END | disposition home or self-care (01) ==
LOC: LAB 08:53
PROVIDERS: ATTEND Nurse Practitioner Family
DX: E78.2 Mixed hyperlipidemia (principal); E03.9 Hypothyroidism, unspecified; I10 Essential (primary) hypertension
CPT/HCPCS: 36415; 80053; 80061; 81001; 81003; 84439; 84443; 84480; 85027

== ENCOUNTER → 2021-01-14 | Outpatient (CLI) | payer OTHER ==
[2021-01-14 11:38] LABS: MEAN CORP HGB 29.8 pg (26-34)
[2021-01-14 12:51] LABS: CARBON DIOXIDE 30.3 mmol/L (20.0-32)
[2021-01-14 12:52] LABS: CALCIUM 9.8 mg/dL (8.4-10.5)
== END | disposition home or self-care (01) ==
LOC: LAB 09:52
PROVIDERS: ATTEND Nurse Practitioner Family
DX: E03.9 Hypothyroidism, unspecified (principal); E78.5 Hyperlipidemia, unspecified
CPT/HCPCS: 36415; 80053; 80061; 84439; 84443; 84480; 85027

== ENCOUNTER → 2021-01-14 | Outpatient (CLI) | payer OTHER ==
--- NOTE | 2021-01-14 14:05 | DIREP ---
PROCEDURE:CT PELVIS W/O COMPARISON:[facility], CT, CT SPINE LUMBAR W/O, 01/14/2021, 11:12 AM. [facility], CT, CT SPINE LUMBAR W/O, 02/28/2020, 09:34 AM. INDICATIONS:M54.5 LUMBAGO TECHNIQUE:Axial images were created through the pelvis without intravenous contrast material. No oral contrast was administered. Sagittal and coronal reconstructions were performed from source images. FINDINGS: AORTA/VASCULAR:Aorta is not visualized. Vasculature is unremarkable. RETROPERITONEUM:Normal. No mass or adenopathy. BOWEL/MESENTERY:Normal. There is no intestinal obstruction, free fluid, free air or mesenteric inflammatory changes. ABDOMINAL WALL:Normal. No mass or hernia. PELVIC ORGANS:Hysterectomy. BONES:Posterior spinal fusion hardware involving L4 through S1 with plate and multiple screws. There is laminectomy at those sites. Intra disc prosthetic material is seen at those levels. OTHER:Negative. CONCLUSION:Postoperative changes consistent with posterior spinal fusion of L4 through S1. No evidence of complication. There is no evidence of acute fracture. Dictated by: Brooks Galo MD on 01/14/2021 at 01:50 PM
--- NOTE | 2021-01-15 08:07 | DIREP ---
PROCEDURE: CT SPINE LUMBAR W/O TECHNIQUE:Axial cuts were obtained through the lumbar spine. The images were viewed at bone settings. COMPARISON:[facility], CT, CT SPINE LUMBAR W/O, 02/28/2020, 09:34 AM. INDICATIONS:M54.5 LUMBAGO FINDINGS: ALIGNMENT:Normal. VERTEBRAE:Posterior fixation hardware at the L3 through S1 levels, with associated laminectomies at L3 through L5. Intervertebral disc spacers at these levels. Vertebral body height is otherwise within normal limits. Minimal anterior osteophyte formation. PARASPINAL AREA:Mild aortic atherosclerosis. OTHER:No additional findings. LUMBAR DISC LEVELS T12-L1:Normal. L1-L2:Mild bilateral facet arthrosis. L2-L3:Mild bilateral facet arthrosis. L3-L4:Postsurgical changes. Small broad-based posterior disc protrusion. Mild left neural foraminal narrowing. L4-L5:Postsurgical changes. L5-S1:Postsurgical changes. Broad-based posterior disc osteophyte complex. Moderate bilateral neural foraminal narrowing, left greater than right. CONCLUSION:Postsurgical and degenerative changes, without acute bony abnormality. Dictated by: Haile Boss M.D. on 01/15/2021 at 08:03 AM
== END | disposition home or self-care (01) ==
LOC: RAD 09:49
PROVIDERS: ATTEND Neurological Surgery
DX: M47.817 Spondylosis without myelopathy or radiculopathy, lumbosacral region (principal); M54.5 Low back pain
CPT/HCPCS: 72131; 72192

== ENCOUNTER → 2021-04-07 | Outpatient (CLI) | payer OTHER ==
[2021-04-07 11:37] LABS: MEAN CORP HGB 29.2 pg (26-34); RED CELL DISTRIBUTION WIDTH 13.1 % (11.5-14.5)
[2021-04-07 12:11] LABS: CALCIUM 9.8 mg/dL (8.4-10.5); CARBON DIOXIDE 29.3 mmol/L (20.0-32)
--- NOTE | 2021-04-07 13:34 | DIREP ---
PROCEDURE:Digital Screening Mammogram TECHNIQUE:MLO, CC, and XCCL digital images of each breast are provided. Computer Assisted Detection (CAD) was utilized. COMPARISON:[facility], MAMMO BILATERAL SCREENING, 03/05/2019, 09:50 AM. [facility], MAMMO BILATERAL SCREENING, 02/01/2018, 01:23 PM. [facility], MAMMO BILATERAL SCREENING, 01/23/2017, 02:11 PM. [facility], MAMMO BILATERAL SCREENING, 01/12/2016, 10:11 AM. [facility], MAMMO BILATERAL SCREENING, 02/28/2020, 09:33 AM. INDICATIONS:SCREENING BREAST COMPOSITION:Scattered areas fibroglandular density. FINDINGS:There are no grouped microcalcifications, masses, or architectural distortions to suggest malignancy. There is no significant change as compared with the previous examination(s). IMPRESSION:No mammographic evidence of malignancy. RECOMMENDATIONS:Routine Screening Mammography per [employer] guidelines. OVERALL FINAL ASSESSMENT:BI-RADS 1 - Negative Mammogram Note: This facility participates in a mammography screening patient reminder system. Dictated by: Lamin Gonzalez M.D. on 04/07/2021 at 01:21 PM
== END | disposition home or self-care (01) ==
LOC: RAD 11:20
PROVIDERS: ATTEND Nurse Practitioner Family
DX: Z12.31 Encounter for screening mammogram for malignant neoplasm of breast (principal); E03.9 Hypothyroidism, unspecified
CPT/HCPCS: 36415; 77067; 80053; 84436; 84443; 84480; 85027

== ENCOUNTER → 2021-07-14 | Outpatient (CLI) | payer OTHER ==
--- NOTE | 2021-07-14 17:00 | DIREP ---
PROCEDURE:XRAY HIP MIN 2VW-RT COMPARISON:[facility], , XRAY HIP MIN 2VW-RT, 01/09/2020, 10:30 AM. INDICATIONS:RIGHT HIP PAIN FINDINGS: BONES:Small marginal acetabular osteophytes. Aspherocity of the femoral head. No visible fracture. JOINTS:Hip joints maintained. SOFT TISSUES:Normal. OTHER:Dorsal lumbar spinal fixation hardware. CONCLUSION: Mild bilateral hip degenerative changes. Possibly etiology may relate to CAM type femoral acetabular impingement given aspherocity of the femoral heads. Dictated by: Smith Mukherjee M.D. on 07/14/2021 at 04:58 PM
== END | disposition home or self-care (01) ==
LOC: RAD 11:31
PROVIDERS: ATTEND Nurse Practitioner Family
DX: M16.11 Unilateral primary osteoarthritis, right hip (principal); M25.551 Pain in right hip
CPT/HCPCS: 73502

== ENCOUNTER → 2021-09-27 | Outpatient (CLI) | payer OTHER ==
[2021-09-27 12:10] LABS: MEAN CORP HGB 30.1 pg (26-34); RED CELL DISTRIBUTION WIDTH 13.4 % (11.5-14.5)
[2021-09-27 12:56] LABS: CARBON DIOXIDE 28.3 mmol/L (20.0-32)
--- NOTE | 2021-09-29 05:33 | ECHO ---
DATE OF SERVICE: 09/27/2021 DICTATOR NAME: Rhonda Yancey MD ECHOCARDIOGRAPHY REPORT A 66-year-old female, preop evaluation before taking for orthopedic surgery, hypertension, dyspnea. PRIMARY PHYSICIAN: Dr. Yancey. FINDINGS: Mitral valve shows mild mitral regurgitation, 2.2 meters velocity was a grade 1 diastolic dysfunction. Aorta is normal with normal aortic valve opening. Tricuspid valve normal motion. Right ventricular systolic pressure of 18 mm. Right ventricle is normal. Right atrium is normal. Left atrium is top normal dimension with 4-chamber view of 4.4 cm. Left ventricle is normal in size around 5.38 cm, end-diastole dimension with 3.62 cm, and end-systolic dimension with normal wall thickness, motion, contraction, ejection fraction of 67%. End-diastolic volume 85 mL. IVC is normal. Pericardium is normal. Hence essentially normal echocardiographic study. Rhonda Yancey MD DR: AYE TID: [id number] RECEIPT: [id number]
== END | disposition home or self-care (01) ==
LOC: RT 11:53
PROVIDERS: ATTEND Specialist
DX: Z01.810 Encounter for preprocedural cardiovascular examination (principal); R06.02 Shortness of breath; I10 Essential (primary) hypertension; I50.32 Chronic diastolic (congestive) heart failure; R06.00 Dyspnea, unspecified
CPT/HCPCS: 36415; 80053; 80061; 82306; 84436; 84443; 85027; 86140; 93306

== ENCOUNTER 2021-10-11 10:50 | Inpatient (IN) | payer OTHER ==
[2021-10-05 10:01] VITALS: BP 148/86
[2021-10-05 10:24] LABS: BILIRUBIN,URINE NEGATIVE (NEGATIVE); UROBILINOGEN,URINE 0.2 E.U./dL (0.2)
[2021-10-11] VITALS (11 sets, daily range): BP systolic 97–148; BP diastolic 52–93
[~2021-10-11] VITALS: Ht 170.2 cm; Wt 88.5 kg
--- NOTE | 2021-10-11 09:40 | PCM.HP ---
History of Present Illness Reason for Visit: Right hip pain History of Present Illness 66 year old female presents with complaints of right hip pain that has been worsening over the past 2-3 months. She complains of painful catching of the hip and pain with flexion. She also reports stiffness, being unable to walk for exercise, and night pain. She takes mobic, gabapentin, and aleve for pain with minimal relief. She is seeking a right total hip replacement today. Past Medical History Cardiac: HTN, Hyperlipidemia RELATIONS SPECIALIST: Migraine Musculoskeletal: Osteoarthritis Endocrine: Hypothyroidism Past Surgical History: Tubal Ligation, Other (Lumbar surgery; Cervical spine surgery; Bilateral CTR; hysterectomy; bladder sling) Past Social History Smoke: No Alcohol: rare Drugs: None Lives: with Family Domestic Violence: Neg Travel Hx EBOLA RISK:Travel to/contact w: No Review of Systems Constitutional: No: Fever, Chills, Sweats, Weakness, Malaise, Other Eyes: No: Pain, Vision change, Conjunctivae inflammation, Eyelid inflammation, Other, Redness ENT: No: Ear pain, Ear discharge, Nose pain, Nose discharge, Nose congestion, Mouth pain, Mouth swelling, Throat pain, Throat swelling, Other Respiratory: No: Cough, Dry, Shortness of breath, SOB with excertion, Wheezing, Hemoptysis, Pleuritic Pain, Sputum, Wheezing, Other Cardiovascular: No: Chest Pain, Palpitations, Orthopnea, Paroxysmal Noc. Dyspnea, Edema, Lt Headedness, Other Gastrointestinal: No: Nausea, Vomiting, Abdominal Pain, Diarrhea, Constipation, Melena, Hematochezia, Other Genitourinary: No Dysuria, No Frequency, No Incontinence, No Hematuria, No Retention, No Other Musculoskeletal: leg pain (right hip pain) Skin: No: Rash, Lesions, Jaundice, Bruising, Other Neurological: No: Weakness, Numbness, Incoordination, Change in speech, Confusion, Seizures, Other Allergies: Coded Allergies: Latex, Natural Rubber (Verified Allergy, Severe, FACIAL SWELLING, DIFFICULTY BREATHING, RASH, 10/05/21) Uncoded Allergies: WASP (Allergy, Severe, WELPS, SHORTNESS OF BREATH, 10/05/21) Scheduled Alendronate Sodium (Fosamax), 70 MG PO Q7D, (Reported) Amitriptyline Hcl (Amitriptyline Hcl), 1 TAB PO HS, (Reported) Aspirin (Aspirin), 1 TAB PO HS, (Reported) Atorvastatin 10MG (Lipitor 10MG), 1 TAB PO HS, (Reported) Calcium Carbonate/Vitamin D3 (Calcium 500 + D Tablet), 2 TAB PO QD, (Reported) Diindolylmethane (Diindolylmethane), 300 MG PO DAILY24, (Reported) Anjana [place]/Linoleic/Gamoleni (Evening [place] 1,000 Mg Sftg), 1 CAP PO DAILY24, (Reported) Gabapentin (Neurontin), 1 CAP PO TID, (Reported) Glucosamine Hcl/Chondr Hedrick A Na (Cidaflex Tablet), 1 TAB PO BID, (Reported) Levothyroxine Sodium (Synthroid), 1 TAB PO DAILY, (Reported) Lisinopril (Lisinopril), 1 TAB PO DAILY, (Reported) Melatonin (Melatonin), 2 TAB PO HS, (Reported) Meloxicam (Meloxicam), 1 TAB PO QD, (Reported) Multivit-Min/Folic Acid/Biotin (Hair, Skin & Nails Caplet), 3 TAB PO QD, (Reported) Multivitamin (Multi Vitamin Daily), 1 TAB PO QD, (Reported) Potassium Chloride (Potassium Chloride), 1 TAB PO DAILY, (Reported) Triamterene/Hydrochlorothiazid (Triamterene-Hctz 37.5-25 Mg Cp), 1 CAP PO DAILY, (Reported) Vitamin D3/Folic Acid (Noxifol-D3 2,500 Unit-1 mg Tab), 1 TAB PO QD, (Reported) [Amberen], 1 TAB PO DAILY24, (Reported) Scheduled PRN Albuterol Sulfate (Proair Hfa), 2 PUFF IH BID PRN for SHORTNESS OF BREATH, (Reported) Methocarbamol (Methocarbamol), 750 MG PO BID PRN for MUSCLE SPASM, (Reported) Sumatriptan Succinate (Sumatriptan Succinate), 100 MG PO DAILY24 PRN for MIGRA KHANG, (Reported) VTE VTE Risk Total Score: >5 VTE Risk Score VTE Risk: Score 0-1 = Low Risk (Aggressive mobilization; early ambulation; no VTE prophylaxis required) Score 2: Moderate Risk (Intermittent/Pneumatic Compression Device OR Lovenox/Heparin/Coumadin) Score 3-4: High Risk (Intermittent/Pneumatic Compression Device AND Lovenox/Heparin/Coumadin) Score > or =5: Highest Risk (Intermittent/Pneumatic Compression Device AND Lovenox/Heparin/Coumadin) Antico:Hep/LMWH/Coum/Xarelto: Yes Mechanical device ordered: Yes VTE VTE Present on Admission: No Currently receiving anticoagul: No VTE Risk Total Score: >5 Exam General Appearance: Alert, Oriented X3, Cooperative HEENT: Atraumatic, PERRLA Respiratory: Clear to auscultation, Normal air movement Cardiovascular: Regular rate, Normal S1, Normal S2 Abdominal: Normal bowel sounds, Soft, No tenderness Extremities: No clubbing, No cyanosis, Normal pulses, Other (Right hip has appr oximately 90 degrees of flexion. Her internal rotation is 10 degrees with pain, external rotation is 30 degrees with mild pain as well. No noticable shortening of the leg. ) Skin: No rash, No breakdown, No lesions Neuro: Normal speech, Strength at 5/5 X4 ext, Sensation intact, Cranial nerves 3-12 NL Psych/Mental Status: Mental status NL, Mood NL Assessment/Plan Assessment/Plan Assessment/Plan Radiology: Xrays show medial and inferior narrowing about the right hip Assessment: OA of the right hip Plan: R KERRIE Problems: (1) Osteoarthritis of right hip Status: Chronic ICD Code: M16.11 - Unilateral primary osteoarthritis, right hip SNOMED: [id number] Patient History: Alzheimer's disease G8 FATHER, , Age:76 Bone cancer G8 SISTER Chronic obstructive pulmonary disease G8 FATHER, , Age:76 Congestive heart failure G8 FATHER, , Age:76 Diabetes mellitus G8 MOTHER, , Age:96 FH: liver cancer 19 CHILD Hypertension G8 MOTHER, , Age:96 G8 FATHER, , Age:76 G8 BROTHER G8 BROTHER G8 BROTHER G8 BROTHER, , Age:43 G8 SISTER G8 SISTER G8 SISTER G8 SISTER G8 SISTER G8 SISTER G8 SISTER G8 SISTER, , Age:68 19 CHILD 19 CHILD Malignant neoplasm of eye 19 CHILD No known health problems 19 CHILD No Family History of: Asthma Cerebrovascular disorder Diabetes insipidus Parkinson's disease JUAN JOSE WEISS Oct 11, 2021 09:40
[~2021-10-11 10:50] MED LIST: ALBU8.5H7 IH; ALEN70TA3 PO; AMBEREN PO; AMIT25TA PO; ANCEF ONE; ASPI-667 PO; ATOR10TA PO; BACTROBAN OINTMENT TP ONE; CALC-26 PO; CELEBREX PO ONE; CEPACOL SORE THROAT LOZENGE MM PRN; DECADRON ONE; DEXAMETHASONE 10 MG/ML VIAL IV ONE; DIPRIVAN 100 ML IV ONE; DURAMORPH ONE; EPHEDRINE SULFATE ONE; EPINEPHrine ONE; EVE1000C3 PO; EXPAREL 266 MG/20 ML VIAL IJ ONE; GABA300C PO; GLUC1TAB90 PO; IMITREX PO PRN; LACTATED RINGERS 1,000 ML IV SCH; LACTATED RINGERS 1,000 ML ONE; LEVO100T PO; LISI10TA20 PO; MELA10TA2 PO; MELO7.5T31 PO; METH-622 PO; MULT-632 PO; NEURONTIN ONE; NEURONTIN PO ONE; NS 100ML 100 ML IV ONE; NS 250ML 250 ML ONE; NS 3000ML IRR IR ONE; OFIRMEV IV ONE; POTA-148 PO; SENSORCAINE-MPF 0.25% VIAL ONE; SODIUM CHLORIDE IRR BOTTLE IR ONE; SUMA100T4 PO; TORADOL IV PRN; TRANEXAMIC ACID ONE; TRANSDERM-SCOP TD ONE; TRIA1CAP3 PO; ULTRAM PO ONE; ULTRAM PO PRN; VALIUM PO PRN; VERSED ONE; VITA25006 PO; WATER ONE; XYLOCAINE 2% 5ML VIAL ONE; ZOFRAN ONE; [UNRECOGNIZED DRUG - CODE] PO; [UNRECOGNIZED DRUG - CODE] PO
--- NOTE | 2021-10-11 11:17 | OPH ---
DATE OF SURGERY: 10/11/2021 DICTATOR NAME: Nathaniel Urrutia MD PREOPERATIVE DIAGNOSIS: Osteoarthritis of the right hip. POSTOPERATIVE DIAGNOSIS: Osteoarthritis of the right hip. OPERATIVE PROCEDURE: Right total hip arthroplasty using Medacta AMIS component, size 6 femoral stem, size 48 acetabular Versafit. The neck was a 28 mm ceramic short neck with a 48 dual articulating liner. SURGEON: Nathaniel Urrutia MD. ANESTHESIA: Spinal. BLOOD LOSS: 700 mL DESCRIPTION OF INDICATIONS: The patient is a 66-year-old female with right groin pain for several months. Her symptoms have gotten progressively worse over the last 2-3 months. She complains of limping as well as painful catching about the hip and also has night pain and pain with just household ambulation. The patient cannot walk for exercise and has night pain. She is taking Mobic as well as gabapentin and Aleve for the pain in the past. The patient's exam shows that she has about 90 degrees of flexion of the hip. Symptoms are worse with internal rotation past about 20 degrees. Her external rotation is approximately 30. The x-ray showed that she is [id number] medially and inferiorly about the hip. She walked with an antalgic Trendelenburg type gait. The patient was taken to the operating room today for total hip arthroplasty for pain relief. DESCRIPTION OF PROCEDURE: The patient was placed in the operating table in the supine position after spinal anesthetic was given by the Anesthesia Department. The patient's right foot and ankle were well padded and placed in the padded traction boot. The patient then had the traction boot attached to the traction unit. The right lower extremity was sterilely prepped and draped. The patient had an anterior approach made to the hip. The incision was taken through the skin, the subcutaneous tissues. Bleeding was controlled with cautery. The tensor fascia was opened in line with the skin incision. The muscle belly was retracted posteriorly and laterally. The rectus fascia was opened and the rectus muscle was retracted medially. The fat pad over the anterior capsule was then excised. The capsular incision was made after the circumflex vessels were identified and coagulated with the Aquamantys device. The capsular incision was made and the capsule was retracted proximally and laterally. The femoral neck cut was made with the power saw. The patient's femoral head was removed with a corkscrew device. The fovea was cleared and any bleeding was controlled. The labrum was excised sharply. The posterior ligaments were then released. The acetabulum was sequentially reamed up to a size 48. The 48 trial had a good fit clinically as well as radiographically. The patient had a 48 Versafitcup impacted into position with good fit and the tilt and version appeared to be satisfactory on the C-arm. The patient then had the hip placed in maximal external rotation as well as hyperextension. The canal was opened with a curette. The patient had the small and subsequently a large rasp used to open the proximal femur. The patient then had the femur rasped up to a size 6. A trial reduction was done with a 6 femur with the 48 liner and a short neck. The hip had excellent stability. The C-arm view showed satisfactory sizing and alignment of the components and the leg length appeared acceptable. The patient then had the trial components removed. The size 6 AMIS femoral stem was then impacted into position. The 28 mm ceramic head with the short neck with the size 48 dual articulating liner was then impacted onto the [place] taper neck. Hip was reduced. Again, there was good stability clinically. Radiographically, the sizing of the components appeared to be satisfactory and the version and the tilt of the acetabular component was satisfactory. The patient then had the wounds copiously irrigated with Betadine for 3 minutes. The Betadine was then irrigated from the wound. The patient had the capsule closed with a #2 PDS in interrupted [id number] manner. The tensor fascia was closed with a barbed #2 PDS in a running manner. The subcutaneous was closed with a 2-0 barbed Monocryl in a running manner and then the skin was closed with nila. A suction Prevena dressing was applied. The patient was sent to recovery in stable condition. Nathaniel Urrutia MD DR: MANPREET/TREASURE TIJudith: [id number] RECEIPT: [id number]
[2021-10-11] MEDS ORDERED: VENTOLIN IH PRN (12:30)
[2021-10-11] MEDS ORDERED: MELATONIN PO PRN (12:30)
[2021-10-11] MEDS: TYLENOL PO SCH ×3 (12:57→23:42)
[2021-10-11] MEDS: ANCEF 2 GM/D5W 50ML IV SCH ×2 (14:00→21:25)
--- NOTE | 2021-10-11 14:12 | DIREP ---
PROCEDURE:XRAY HIP MIN 2VW-RT COMPARISON:[facility], , XRAY HIP MIN 2VW-RT, 07/14/2021, 11:50 AM. INDICATIONS:POST-OP RT TOTAL HIP REPLACEMENT FINDINGS: BONES:No visible fracture or bony lesion. Overall bone mineralization appears diminished. Anterior and posterior lower lumbar fusion hardware and laminectomy changes noted. JOINTS:Status post right hip hemiarthroplasty in good alignment without evidence of immediate complication. SOFT TISSUES:Tissue gas about the right hip, expected postoperatively. Skin closure nila project lateral to the right hip. A wound VAC appears to be in place along the right hip. Surgical clips project over the lower pelvis. OTHER:No additional findings. CONCLUSION:Status post right hip hemiarthroplasty without evidence of immediate complication. Dictated by: Arturo Gutierrez M.D. on 10/11/2021 at 02:07 PM
[2021-10-11] MEDS: NEURONTIN PO SCH ×2 (15:08→20:18)
[2021-10-11] MEDS: ZOFRAN IV PRN ×2 (15:31→21:50)
[2021-10-11 18:19] LABS: MEAN CORP HGB 30.2 pg (26-34); RED CELL DISTRIBUTION WIDTH 13.3 % (11.5-14.5)
[2021-10-11] MEDS ORDERED: LIPITOR PO SCH (21:00)
[2021-10-11] MEDS ORDERED: ELAVIL PO SCH (21:00)
[2021-10-12 00:53] VITALS: BP 131/69
--- NOTE | 2021-10-12 00:54 | NUR ---
report this patient was complaining of itching all over. but her skin looks good. this nurse reported . ordered prn q6hrs Benadryl 25mg PO, 2doses.
[2021-10-12] MEDS: BENADRYL PO PRN ×2 (01:03→07:35)
[2021-10-12 04:54] LABS: MEAN CORP HGB 30.9 pg (26-34); RED CELL DISTRIBUTION WIDTH 13.6 % (11.5-14.5)
[2021-10-12] MEDS: TYLENOL PO SCH ×3 (05:31→17:02)
[2021-10-12] MEDS: ANCEF 2 GM/D5W 50ML IV SCH (05:31)
[2021-10-12 05:45] VITALS: BP 135/60
[2021-10-12] MEDS ORDERED: SYNTHROID PO SCH (06:30)
[2021-10-12 08:23] VITALS: BP 112/47
[2021-10-12] MEDS ORDERED: ZESTRIL PO SCH (09:00)
[2021-10-12] MEDS ORDERED: PEPCID PO SCH (09:00)
[2021-10-12] MEDS ORDERED: THERA PO SCH (09:00)
[2021-10-12] MEDS ORDERED: MAXZIDE 37.5 MG-25 MG TABLET PO SCH (09:00)
[2021-10-12] MEDS ORDERED: KLOR-CON 10 PO SCH (09:00)
[2021-10-12] MEDS ORDERED: XARELTO PO SCH (09:00)
[2021-10-12] MEDS ORDERED: COLACE PO SCH (09:00)
[2021-10-12] MEDS: NEURONTIN PO SCH ×2 (09:26→14:59)
[2021-10-12] MEDS ORDERED: BENADRYL PO PRN (09:30)
--- NOTE | 2021-10-12 09:35 | NUR ---
9CC OF WATER REMOVED FROM LAINEZ CATHETER BULB, CATHER DC'D WITHOUT DIFFICULTY. PT D/T VOID
--- NOTE | 2021-10-12 09:35 | PRM.PN ---
Progress Note Subjective Date: Oct 12, 2021 Time: 08:30 Physician Notes: Patient is doing well this morning Pain has been well controlled throughout the night Ambulated in hallway twice since surgery, has done well with ambulating C/o itching after receiving antibiotics, received two doses of benadryl last night C/o vomiting multiple times yesterday, has not had any vomiting in the last 8 hours, ate 100% of breakfast denies nausea so far Objective Review IO, Exams,& Results Vital Signs Date Time Temp Pulse Resp B/P (MAP) Pulse Ox O2 Delivery O2 Flow Rate FiO2 10/12/21 08:23 98.2 82 18 112/47 (68) 94 Room Air* 0 21 Intake and Output 10/12/21 07:00 Intake Total 70522 ml Output Total 2150 ml Balance 8094 ml Intake Oral 1990 ml Electrolyte Solution 4000 ml IV Total 4 ml Other 4250 ml Output Urine Total 1050 ml Emesis 1100 ml Laboratory Tests Test 10/11/21 18:15 10/12/21 04:16 White Blood Count 15.2 10^3/uL 16.0 10^3/uL Red Blood Count 3.58 10^6/uL 3.07 10^6/uL Hemoglobin 10.8 g/dL 9.5 g/dL Hematocrit 33.0 % 29.3 % Mean Corpuscular Volume 92.2 fL 95.4 fL Mean Corpuscular Hemoglobin 30.2 pg 30.9 pg Mean Corpuscular Hemoglobin Concent 32.7 g/dL 32.4 g/dL Red Cell Distribution Width 13.3 % 13.6 % Platelet Count 222 10^3/uL 193 10^3/uL Mean Platelet Volume 9.5 fL 9.7 fL Current Medications Medications (Trade) Dose Ordered Sig/Sami PRN Reason Start Time Stop Time Status Last Admin Acetaminophen (Tylenol) 1,000 mg Q6HR 10/11/21 12:00 11/10/21 11:59 10/12/21 05:31 Albuterol Sulfate (Ventolin) 2.5 mg BID PRN SHORTNESS OF BREATH 10/11/21 12:30 11/10/21 12:29 Amitriptyline HCl (Elavil) 25 mg HS 10/11/21 21:00 11/10/21 20:59 10/11/21 20:18 Atorvastatin Calcium (Lipitor) 10 mg HS 10/11/21 21:00 11/10/21 20:59 10/11/21 20:18 Diazepam (Valium) 5 mg Q6HR PRN MUSCLE SPASM 10/11/21 10:00 11/10/21 09:59 Diphenhydramine HCl (Benadryl) 25 mg Q6HR PRN ITCHING 10/12/21 09:30 11/11/21 09:29 UNV Docusate Sodium (Colace) 100 mg DAILY 10/12/21 09:00 11/11/21 08:59 Famotidine (Pepcid) 20 mg DAILY 10/12/21 09:00 11/11/21 08:59 Gabapentin (Neurontin) 300 mg TID 10/11/21 15:00 11/10/21 14:59 10/11/21 20:18 Ketorolac Tromethamine (Toradol) 30 mg Q6H PRN PAIN 7 - 10 10/11/21 10:00 10/16/21 09:59 Levothyroxine Sodium (Synthroid) 100 mcg ACB 10/12/21 06:30 11/11/21 06:29 10/12/21 05:31 Lisinopril (Zestril) 10 mg DAILY 10/12/21 09:00 11/11/21 08:59 Melatonin (Melatonin) 9 mg HS PRN INSOMNIA 10/11/21 12:30 11/10/21 12:29 Ondansetron HCl (Zofran) 4 mg Q4H PRN NAUSEA / VOMITING 10/11/21 10:00 11/10/21 09:59 10/11/21 21:50 Potassium Chloride (Klor-Con 10) 20 meq DAILY 10/12/21 09:00 11/11/21 08:59 Rivaroxaban (Xarelto) 10 mg DAILY 10/12/21 09:00 11/11/21 08:59 Sumatriptan Succinate (Imitrex) 100 mg DAILY24 PRN MIGRAINES 10/11/21 10:00 11/10/21 09:59 Throat Lozenges (Cepacol Sore Throat Lozenge) 1 each PRN PRN SORE THROAT 10/11/21 10:00 11/10/21 09:59 Tramadol HCl (Ultram) 50 mg Q6H PRN PAIN 1 - 3 10/11/21 10:00 11/10/21 09:59 Tramadol HCl (Ultram) 100 mg Q6H PRN PAIN 4 - 6 10/11/21 10:00 11/10/21 09:59 Triamterene/HCTZ (Maxzide 37.5 Mg-25 Mg Tablet) 1 tab DAILY 10/12/21 09:00 11/11/21 08:59 Orders - JUAN JOSE WEISS Regular Diet (10/11/21 Breakfast) Pt Eval And Treat Mobility (10/11/21 09:45) Weight Bearing Status (10/11/21 09:45) Ot Eval And Treat (10/11/21 09:45) Social Servics D/C Planning (10/12/21 09:45) Float Heels With Pillow (10/11/21 09:45) Iceman To Surgical Site (10/11/21 09:45) CPM (10/11/21 09:45) Po Surgical Vitals (10/11/21 09:45) Place Cantor Catheter (10/11/21 09:45) Incision Care (10/13/21 09:45) Tramadol Hcl (Ultram) (10/11/21 10:00) Tramadol Hcl (Ultram) (10/11/21 10:00) Rivaroxaban (Xarelto) (10/12/21 09:00) Docusate Sodium (Colace) (10/12/21 09:00) Benzocaine/Menthol (Cepacol Sore Throat (10/11/21 10:00) Ringer's Solution,Lactated (Lactated Rin (10/11/21 10:00) Famotidine (Pepcid) (10/12/21 09:00) Rt Incentive Spirometry (10/11/21 09:45) Rt O2 Per Hour (10/11/21 09:45) Admit Orders (10/11/21 09:45) Ext Neurovascular Exam With Vs (10/11/21 09:45) Scd's While In Bed (10/11/21 09:45) Maintain Prevena Seal (10/13/21 09:45) Acetaminophen (Tylenol) (10/11/21 12:00) Ketorolac Tromethamine (Toradol) (10/11/21 10:00) Ondansetron Hcl/Pf (Zofran) (10/11/21 10:00) Diazepam (Valium) (10/11/21 10:00) Amitriptyline 25 Mg Tab (Elavil) (10/11/21 21:00) Gabapentin (Neurontin) (10/11/21 15:00) Levothyroxine Sodium (Synthroid) (10/12/21 06:30) Lisinopril (Zestril) (10/12/21 09:00) Sumatriptan Succinate (Imitrex) (10/11/21 10:00) Melatonin (Melatonin) (10/11/21 12:30) Potassium Chloride (Klor-Con 10) (10/12/21 09:00) Triamterene/Hydrochlorothiazid (Maxzide (10/12/21 09:00) Albuterol Sulfate (Ventolin) (10/11/21 12:30) Atorvastatin Calcium (Lipitor) (10/11/21 21:00) Multivitamin,Therapeutic (Thera) (10/12/21 09:00) Pt Clarify Mob. Treatment (10/11/21 18:52) Dc Cantor (10/12/21:22) Saline Lock (10/12/21:22) Cbc W/O Diff (10/13/21 05:00) Diphenhydramine Hcl (Benadryl) (10/12/21 09:30) Heart: Regular rate, Normal S1, Normal S2 Abdomen: Normal bowel sounds, Soft, No tenderness Lungs: Clear to auscultation, Normal air movement Assessment & Plan: Plan Labs reviewed, H&H stable slight decrease from 10.8/33.0 to 9.5/29.3 - expected surgical loses, will continue to monitor DC Cantor SL IV Abx regimen completed at this point Benadryl 25mg PO q6h PRN itching added Continue PT/OT today, 50% WBAT with walker Case management for DC planning If patient continues to do well throughout the day will consider DC home this evening JUAN JOSE WEISS Oct 12, 2021 09:35
[2021-10-12 11:29] VITALS: BP 139/59
--- NOTE | 2021-10-12 12:53 | NUR ---
DISCHARGE PLAN - [facility] - O2 - APPT [facility] - 10/19/21@9AM. CM VISITED WITH PATIENT AND SPOUSE YESTERDAY AFTERNOON ABOUT DISCHARGE PLANS, NEEDS, AND GOALS. PATIENT CURRENTLY LIVES IN [place] WITH HER SPOUSE AND IND WITH [facility]L PRIOR TO SURGERY. PATIENT REPORTS THAT SHE HAS A TOILET [place], [place], AND REACHERS@HOME, BUT NEEDS A 2 WHEELED WALKER. PATIENT REQUEST CM ORDER PATIENT A WALKER FROM [facility] DUE TO HER SON WORKS THERE AND ADDRESS IT ATTN [address]. PATIENT DENIES ANY NEED FOR ANY OTHER SERVICES. CM OFFERED TO MAKE PATIENT AN APPT W/[facility] FOR F/U AND PATIENT AGREEABLE. CM FAXED WALKER REFERRAL TO [facility] @[phone]. FAX CONFIRMATION CONFIRMED COMPLETE ON 10/11/21@4727. CM CONTACTED [facility]'S OFFICE THIS AM AND APPT MADE FOR PATIENT TO F/U ON 10/19/21@9AM. CM WILL FAX PATIENT'S CLINICALS TO OFFICE WHEN PATIENT DISCHARGED TO [phone] PER SHAHNAZ'S [email or web address] NP OFFICE. [email or web address] THIS AM AND INFORMED PATIENT OF REFERRAL FOR WALKER SENT TO [facility] AND PATIENT REPORTS HER SON DELIVERED IT TO HER HOUSE YESTERDAY AND HER SPOUSE BROUGHT IT UP HERE ALREADY. PATIENT INFORMED OF F/U APPT WITH [facility] ON 10/19/21@9AM PER PATIENT'S REQUEST. CM WROTE INFO ON PATIENT'S MARKER BOARD AND IN PATIENT'S VISIT REPORT FOR REMINDER. PATIENT DENIES ANY OTHER DISCHARGE NEEDS.
[2021-10-12 16:16] VITALS: BP 120/64
[2021-10-12] MEDS ORDERED: TRAM50TA PO (17:51)
[2021-10-12] MEDS ORDERED: ACET500T73 PO (17:51)
[2021-10-12] MEDS ORDERED: ASPI-667 PO (17:51)
[2021-10-12 18:15] VITALS: BP 120/64
--- NOTE | 2021-10-12 18:15 | NUR ---
discharge instruction given, pt voiced understanding. pt discharged via w/c to personal vehicle with spouse
--- NOTE | 2021-10-13 08:54 | NUR ---
PCP UPDATED CM FAXED COMPLETE CLINICALS TO [facility] NP@[phone]. FAX CONFIRMATION CONFIRMED COMPLETE. PATIENT W F/U APPT 10/19/21@9AM.
--- NOTE | 2021-10-13 22:44 | PRM.DC ---
Discharge Summary Date of Discharge: Oct 12, 2021 Time of Request to Discharge: 17:00 Reason for Visit: Right hip pain Patient History: Alzheimer's disease G8 FATHER, , Age:76 Bone cancer G8 SISTER Chronic obstructive pulmonary disease G8 FATHER, , Age:76 Congestive heart failure G8 FATHER, , Age:76 Diabetes mellitus G8 MOTHER, , Age:96 FH: liver cancer 19 CHILD Hypertension G8 MOTHER, , Age:96 G8 FATHER, , Age:76 G8 BROTHER G8 BROTHER G8 BROTHER G8 BROTHER, , Age:43 G8 SISTER G8 SISTER G8 SISTER G8 SISTER G8 SISTER G8 SISTER G8 SISTER G8 SISTER, , Age:68 19 CHILD 19 CHILD Malignant neoplasm of eye 19 CHILD No known health problems 19 CHILD No Family History of: Asthma Cerebrovascular disorder Diabetes insipidus Parkinson's disease Exam/Vitals Vital Signs Date Time Temp Pulse Resp B/P (MAP) Pulse Ox O2 Delivery O2 Flow Rate FiO2 10/12/21 18:15 84 18 95 Room Air 10/12/21 16:16 98.3 120/64 (82) 0 21 General: Alert, Oriented X3, Cooperative HEENT: Atraumatic, PERRLA Neck: Supple, No JVD Lungs: Clear to auscultation, Normal air movement Heart: Regular rate, Normal S1, Normal S2 Abdomen: Normal bowel sounds, Soft, No tenderness Extremities: No clubbing, No cyanosis, Normal pulses, Other (Provena Wound vac in place to right hip incision ) Skin: No rashes, No breakdown, No significant lesion Neuro: Normal speech, Normal tone, Sensation intact, Cranial nerves 3-12 NL Psych/Mental Status: Mental status NL, Mood NL Scheduled Alendronate Sodium (Fosamax), 70 MG PO Q7D, (Reported) Amitriptyline Hcl (Amitriptyline Hcl), 1 TAB PO HS, (Reported) Aspirin (Aspirin), 1 TAB PO BID Atorvastatin 10MG (Lipitor 10MG), 1 TAB PO HS, (Reported) Calcium Carbonate/Vitamin D3 (Calcium 500 + D Tablet), 2 TAB PO QD, (Reported) Diindolylmethane (Diindolylmethane), 300 MG PO DAILY24, (Reported) Anjana [place]verhill/Linoleic/Gamoleni (Evening Haverhill 1,000 Mg Sftg), 1 CAP PO DAILY24, (Reported) Gabapentin (Neurontin), 1 CAP PO TID, (Reported) Glucosamine Hcl/Chondr Hedrick A Na (Cidaflex Tablet), 1 TAB PO BID, (Reported) Levothyroxine Sodium (Synthroid), 1 TAB PO DAILY, (Reported) Lisinopril (Lisinopril), 1 TAB PO DAILY, (Reported) Melatonin (Melatonin), 2 TAB PO HS, (Reported) Meloxicam (Meloxicam), 1 TAB PO QD, (Reported) Multivit-Min/Folic Acid/Biotin (Hair, Skin & Nails Caplet), 3 TAB PO QD, (Reported) Multivitamin (Multi Vitamin Daily), 1 TAB PO QD, (Reported) Potassium Chloride (Potassium Chloride), 1 TAB PO DAILY, (Reported) Tramadol Hcl (Tramadol Hcl), 1-2 TAB PO Q6H Triamterene/Hydrochlorothiazid (Triamterene-Hctz 37.5-25 Mg Cp), 1 CAP PO DAILY, (Reported) Vitamin D3/Folic Acid (Noxifol-D3 2,500 Unit-1 mg Tab), 1 TAB PO QD, (Reported) [Amberen], 1 TAB PO DAILY24, (Reported) Scheduled PRN Acetaminophen (Acetaminophen), 2 TAB PO Q6HR PRN for pain or fever Albuterol Sulfate (Proair Hfa), 2 PUFF IH BID PRN for SHORTNESS OF BREATH, (Reported) Methocarbamol (Methocarbamol), 750 MG PO BID PRN for MUSCLE SPASM, (Reported) Sumatriptan Succinate (Sumatriptan Succinate), 100 MG PO DAILY24 PRN for MIGRAINES, (Reported) Discontinued Medications Aspirin (Aspirin), 1 TAB PO HS, (Reported) Discontinued Reason: HOLD Sepsis Evaluation @ Discharge 10/12/21 10:00 Stroke Discharge Summary Discharge on Antcoagulation Th: Yes Anticoagulation Therapy Medica: Aspirin 81mg Chew Tab Course Sepsis Screening Results: Posi: NEGATIVE Sepsis Qualifier/Stage: NO DEFINITE RISK DATE SEEN BY PHYSICIAN: Oct 12, 2021 TIME SEEN BY PROVIDER: 16:45 Duration or Total Time Spent w: 10 Vitals & review Data Intake and Output Laboratory Tests Test 10/12/21 04:16 White Blood Count 16.0 10^3/uL Red Blood Count 3.07 10^6/uL Hemoglobin 9.5 g/dL Hematocrit 29.3 % Mean Corpuscular Volume 95.4 fL Mean Corpuscular Hemoglobin 30.9 pg Mean Corpuscular Hemoglobin Concent 32.4 g/dL Red Cell Distribution Width 13.6 % Platelet Count 193 10^3/uL Mean Platelet Volume 9.7 fL Sepsis Infection Criteria Pres: None LEVEL 1 SEPSIS INFECTION CRITE: Recent Invasive Procedure LEVEL 2-SIRS (LIST ALL THAT AP: [id number] Cardiovascular Evidence: Not Assessed or None Hematologic Evidence: None/Not assessed Hepatic Evidence: None/Not assessed Metabolic Evidence: None/Not assessed Neurological Evidence: None/Not assessed Respiratory Evidence: Need for O2 to keep>90% Renal Evidence: None/Not assessed O2 Sat by Pulse Oximetry: 95 Oxygen Flow Rate: 0.00 Plan Problems: (1) Osteoarthritis of right hip Status: Resolved ICD Code: M16.11 - Unilateral primary osteoarthritis, right hip SNOMED: [id number] Discharge Date: Oct 12, 2021 Dicharge DX: R KERRIE Discharge Disposition: Stable Plan Patient has continued to do well throughout the day, pain well controlled, ambulated entire hallway three times throughout the day without significant pain, tolerated activity well, she is ready to go home May DC home at this time Follow up with Dr. Urrutia on Monday or Monday next week 50% WB to RLE with a walker Leave dressing in place until next appointment Continue Tramadol PRN for pain Continue Tylenol PRN for pain ASA 81mg PO BID x30 days for VTE prophylaxis JUAN JOSE WEISS Oct 13, 2021 22:44
== END 2021-10-12 18:15 | disposition home or self-care (01) | DRG 470 ==
LOC: MS 11:15
PROVIDERS: ADMIT Orthopaedic Surgery; ATTEND Orthopaedic Surgery
PROC: 0SR90J9 Replacement of Right Hip Joint with Synthetic Substitute, Cemented, Open Approach (ICD-10-PCS; principal; 2021-10-11 08:00)
DX: M16.11 Unilateral primary osteoarthritis, right hip (principal); E03.9 Hypothyroidism, unspecified; E78.5 Hyperlipidemia, unspecified; M19.90 Unspecified osteoarthritis, unspecified site; I10 Essential (primary) hypertension; G43.909 Migraine, unspecified, not intractable, without status migrainosus; Z83.6 Family history of other diseases of the respiratory system; Z90.710 Acquired absence of both cervix and uterus; Z83.3 Family history of diabetes mellitus; Z80.9 Family history of malignant neoplasm, unspecified
CPT/HCPCS: 36415; 73502; 76000; 81003; 85027; 87070; 97162; A4217; C1713; G0378; J0131; J0171; J0690; J1100; J2001; J2250; J2405; J3490; J7050; J7120; Q0163; 97116-GP; 97530-GP; C1776; C9290; J2274; J8499

== ENCOUNTER → 2024-06-10 | Outpatient (CLI) | payer MEDICARE, OTHER ==
[~2024-06-10] MED LIST changes: +ACET500T73 PO; -ALEN70TA3 PO; +ALEN70TA81 PO; -ANCEF ONE; -BACTROBAN OINTMENT TP ONE; -CELEBREX PO ONE; -CEPACOL SORE THROAT LOZENGE MM PRN; -DECADRON ONE; -DEXAMETHASONE 10 MG/ML VIAL IV ONE; -DIPRIVAN 100 ML IV ONE; -DURAMORPH ONE; -EPHEDRINE SULFATE ONE; -EPINEPHrine ONE; -EXPAREL 266 MG/20 ML VIAL IJ ONE; -IMITREX PO PRN; -LACTATED RINGERS 1,000 ML IV SCH; -LACTATED RINGERS 1,000 ML ONE; -MELA10TA2 PO; +MELATONIN10 MG PO; -NEURONTIN ONE; -NEURONTIN PO ONE; -NS 100ML 100 ML IV ONE; -NS 250ML 250 ML ONE; -NS 3000ML IRR IR ONE; -OFIRMEV IV ONE; -SENSORCAINE-MPF 0.25% VIAL ONE; -SODIUM CHLORIDE IRR BOTTLE IR ONE; -TORADOL IV PRN; +TRAM50TA PO; -TRANEXAMIC ACID ONE; -TRANSDERM-SCOP TD ONE; -TRIA1CAP3 PO; +TRIA1CAP7 PO; -ULTRAM PO ONE; -ULTRAM PO PRN; -VALIUM PO PRN; -VERSED ONE; -WATER ONE; -XYLOCAINE 2% 5ML VIAL ONE; -ZOFRAN ONE
== END | disposition home or self-care (01) ==
LOC: RAD 15:17
PROVIDERS: ATTEND Nurse Practitioner Family
DX: R59.0 Localized enlarged lymph nodes (principal)
CPT/HCPCS: 76882

== ENCOUNTER → 2024-08-13 | Outpatient (CLI) | payer MEDICARE, OTHER | END | disposition home or self-care (01) | LOC: RAD 11:07 | PROVIDERS: ATTEND Orthopaedic Surgery | DX: M25.551 Pain in right hip (principal) | CPT/HCPCS: 73502 ==